=== PATIENT | female | born 1955 | race Two or more races ===

== ENCOUNTER 2019-03-18 20:55 | Emergency (ER) | payer BC ==
[~2019-03-18] VITALS: Ht 160 cm; Wt 64.9 kg
[2019-03-18] MEDS ORDERED: VERAPAMIL HCL40 MG (21:13)
[2019-03-18] MEDS ORDERED: LEVOTHYROXINE (21:13)
[2019-03-18] MEDS ORDERED: CRESTOR5 MG (21:13)
[2019-03-18] MEDS ORDERED: ASPIRIN81 MG (21:14)
== END 2019-03-19 02:24 | disposition home or self-care (01) ==
LOC: ER 20:55
DX: R30.0 Dysuria (principal); R10.31 Right lower quadrant pain